=== PATIENT | male | born 1955 | race Caucasian/White ===

== ENCOUNTER → 2021-10-07 | Day surgery (SDC) | payer OTHER ==
[~2021-10-07] MED LIST: AMLODIPINE BESYL5 MG PO; ASPIRIN81 MG PO; FENTANYL CITRATE/PF 100MCG/2 ML INJ ONE; FUROSEMIDE40 MG PO; GLUCAGON FOR INJ 1 MG VIAL ONE; LEVOTHYROXINE100 MCG PO; LORATADINE10 MG PO; LOSARTAN POTASS25 MG PO; METFORMIN HCL850 MG PO; MIDAZOLAM HCL 5 MG/ML VIAL ONE; NOVOLIN 70100 UNIT/3 SC; PROPOFOL IV EMULSION 10 MG/ML 20 ML VIAL ONE; SIMVASTATIN20 MG PO
[2021-10-07 12:30] VITALS: BP 134/61
[2021-10-07 12:41] LABS: BASOPHILS % 0.3 % (0.0-1.0); EOSINOPHILS # (AUTO) 0.3 (0.0-0.4); EOSINOPHILS % 2.3 % (0.0-6.0); HEMATOCRIT 24.7 % (38.2-49.6); HEMOGLOBIN 7.9 g/dL (14.0-18.0); LYMPHOCYTES # (AUTO) 1.9 (1.0-3.2); LYMPHOCYTES % 17.1 % (18.0-39.1); MEAN CORPUSCULAR HEMOGLOBIN 27.1 pg (28-32); MEAN CORPUSCULAR VOLUME 84.6 fL (81-99); MONOCYTES # (AUTO) 0.6 (0.2-0.8); MONOCYTES % 5.5 % (4.4-11.3); NEUTROPHILS # (AUTO) 8.1 (2.1-6.9); NEUTROPHILS % 73.3 % (38.7-80.0); PLATELET COUNT 186 x10e3/uL (140-360); RED BLOOD COUNT 2.92 x10e6/uL (4.3-5.7); RED CELL DISTRIBUTION WIDTH 17.1 % (11.7-14.4)
[2021-10-07 12:58] LABS: % IRON SATURATION 17 % (15-50); IRON 40 ug/dL (65-175); TOTAL IRON BINDING CAPACITY 230 ug/dL (261-478); TRANSFERRIN 164 mg/dL (174-364)
== END | disposition home or self-care (01) ==
LOC: OR 15:24
PROVIDERS: ATTEND Internal Medicine Gastroenterology
DX: D64.89 Other specified anemias (principal); D12.2 Benign neoplasm of ascending colon; D12.3 Benign neoplasm of transverse colon; D12.4 Benign neoplasm of descending colon; D12.5 Benign neoplasm of sigmoid colon; K29.70 Gastritis, unspecified, without bleeding; K20.90 Esophagitis, unspecified without bleeding; K31.89 Other diseases of stomach and duodenum; K64.8 Other hemorrhoids; Z87.11 Personal history of peptic ulcer disease; Z71.3 Dietary counseling and surveillance; E11.9 Type 2 diabetes mellitus without complications; I10 Essential (primary) hypertension; E03.9 Hypothyroidism, unspecified; Z01.810 Encounter for preprocedural cardiovascular examination; Z01.812 Encounter for preprocedural laboratory examination; Z20.822 Contact with and (suspected) exposure to COVID-19; Z79.82 Long term (current) use of aspirin; Z79.4 Long term (current) use of insulin; Z79.899 Other long term (current) drug therapy; Z86.73 Personal history of transient ischemic attack (TIA), and cerebral infarction without residual deficits
CPT/HCPCS: 36415; 43239; 45380; 45384; 45385; 82607; 82746; 82948; 83540; 84466; 85025; 85045; 93005; J1610; J2250; J3010; U0002

== ENCOUNTER 2021-10-12 11:14 | Inpatient (IN) | payer OTHER ==
[~2021-10-12] VITALS: Ht 177.8 cm; Wt 77.1 kg
[~2021-10-12 11:14] MED LIST changes: -FENTANYL CITRATE/PF 100MCG/2 ML INJ ONE; -GLUCAGON FOR INJ 1 MG VIAL ONE; -MIDAZOLAM HCL 5 MG/ML VIAL ONE; -PROPOFOL IV EMULSION 10 MG/ML 20 ML VIAL ONE
[2021-10-12] MEDS ORDERED: LEVOFLOXACIN 500MG/D5W 100ML 100 ML IV ONE (12:15)
[2021-10-12] MEDS ORDERED: DEXTROSE 50% SYRINGE 50 ML IV PRN (12:30)
[2021-10-12] MEDS: LACTATED RINGER'S 1,000 ML IV SCH (12:30)
[2021-10-12] MEDS ORDERED: LACTATED RINGER'S 2,000 ML ONE (12:35)
[2021-10-12] MEDS ORDERED: METRONIDAZOLE 500MG/NS 100ML 100 ML IV ONE ×2 (12:35→13:30)
[2021-10-12] MEDS ORDERED: SODIUM CHLORIDE 0.9% 250ML 250 ML IV ONE (14:00)
[2021-10-12] MEDS ORDERED: CLONIDINE HCL 0.1 MG TAB PO PRN (14:00)
[2021-10-12] MEDS ORDERED: ZOLPIDEM TARTRATE 5 MG TAB PO PRN (14:00)
[2021-10-12] MEDS ORDERED: ACETAMINOPHEN 325 MG TAB PO PRN (14:00)
[2021-10-12] MEDS ORDERED: ONDANSETRON HCL INJ 2MG/ML 2ML 2 MG/ML VIAL IV PRN (14:00)
[2021-10-12] MEDS ORDERED: DIPHENHYDRAMINE HCL INJ 50 MG/ML VIAL IV PRN (14:00)
[2021-10-12 14:03] VITALS: BP 153/69
[2021-10-12 15:24] LABS: HEMOGLOBIN 7.4 g/dL (14.0-18.0)
[2021-10-12 16:00] VITALS: BP 153/69
[2021-10-12 16:26] VITALS: BP 119/97
[2021-10-12] MEDS: INSULIN REGULAR, HUMAN 100 UNIT/1 ML SQ SCH ×2 (16:30→20:43)
[2021-10-12 20:14] VITALS: BP 149/74
[2021-10-12 23:33] LABS: HEMATOCRIT 18.8 % (38.2-49.6); HEMOGLOBIN 6.3 g/dL (14.0-18.0)
[2021-10-13] VITALS (9 sets, daily range): BP systolic 132–149; BP diastolic 65–72
[2021-10-13] MEDS ORDERED: CYANOCOBALAMIN INJ 1,000 MCG/ML VIAL IM ONE (00:30)
[2021-10-13] MEDS ORDERED: SODIUM CHLORIDE 0.9% 250ML 250 ML ONE ×2 (00:51→03:40)
[2021-10-13 01:17] LABS: FERRITIN 70.15 ng/mL (21.81-274.66)
[2021-10-13 02:30] LABS: INR 1.16; PROTHROMBIN TIME 15.8 seconds (11.9-14.5)
[2021-10-13] MEDS: LACTATED RINGER'S 1,000 ML IV SCH (05:00)
[2021-10-13] MEDS: INSULIN REGULAR, HUMAN 100 UNIT/1 ML SQ SCH ×4 (08:30→20:30)
[2021-10-13] MEDS: LEVOTHYROXINE SODIUM 100 MCG TAB PO SCH (08:51)
[2021-10-13] MEDS: CYANOCOBALAMIN INJ 1,000 MCG/ML VIAL IM SCH (08:52)
[2021-10-13] MEDS: IRON SUCROSE 100 MG in SODIUM CHLORIDE 0.9% 100 ML 100 ML IV SCH (08:52)
[2021-10-13] MEDS: AMLODIPINE BESYLATE 5 MG TAB PO SCH (08:52)
[2021-10-13] MEDS ORDERED: FUROSEMIDE 20 MG TAB PO SCH (09:00)
[2021-10-13] MEDS ORDERED: LOSARTAN POTASSIUM 25 MG TAB PO SCH (09:00)
[2021-10-13 09:28] LABS: BASOPHILS % 0.3 % (0.0-1.0); EOSINOPHILS # (AUTO) 0.3 (0.0-0.4); EOSINOPHILS % 2.2 % (0.0-6.0); HEMATOCRIT 22.1 % (38.2-49.6); HEMOGLOBIN 7.4 g/dL (14.0-18.0); LYMPHOCYTES # (AUTO) 1.9 (1.0-3.2); LYMPHOCYTES % 16.4 % (18.0-39.1); MEAN CORPUSCULAR HGB CONC 33.5 g/dL (31-35); MEAN CORPUSCULAR VOLUME 83.7 fL (81-99); MONOCYTES # (AUTO) 0.6 (0.2-0.8); MONOCYTES % 5.2 % (4.4-11.3); NEUTROPHILS # (AUTO) 8.8 (2.1-6.9); NEUTROPHILS % 74.7 % (38.7-80.0); PLATELET COUNT 164 x10e3/uL (140-360); RED BLOOD COUNT 2.64 x10e6/uL (4.3-5.7)
[2021-10-13 09:37] LABS: CALCIUM IONIZED 1.2 mmol/L (1.09-1.30)
[2021-10-13 09:57] LABS: ALBUMIN 2.7 g/dL (3.5-5.0); ALBUMIN/GLOBULIN RATIO 1.4 (0.8-2.0); ALKALINE PHOSPHATASE 59 IU/L (40-150); ANION GAP 12.4 mmol/L (8-16); BLOOD UREA NITROGEN 46 mg/dL (7-26); BUN/CREATININE RATIO 23 (6-25); CARBON DIOXIDE 18 mmol/L (22-29); CHLORIDE 112 mmol/L (98-107); CREATININE, SERUM 1.97 mg/dL (0.72-1.25); EST GLOMERULAR FILTRATION RATE 34 ML/MIN (60-); GLUCOSE 158 mg/dL (74-118); MAGNESIUM 1.6 MG/DL (1.3-2.1); POTASSIUM 5.4 mmol/L (3.5-5.1); SODIUM 137 mmol/L (136-145)
[2021-10-13 10:03] LABS: ALANINE AMINOTRANSFERASE < 6 IU/L (0-55)
[2021-10-13 10:15] LABS: THYROID STIMULATING HORMONE 14.303 uIU/mL (0.350-4.940)
[2021-10-13] MEDS ORDERED: PHYTONADIONE 10 MG/ML AMP IV ONE (10:30)
[2021-10-13] MEDS ORDERED: SODIUM CHLORIDE 0.9% 500ML 500 ML ONE (10:56)
[2021-10-13] MEDS ORDERED: PHYTONADIONE 10MG/ML 20 MG in SODIUM CHLORIDE 0.9% 50ML 50 ML IV ONE (11:00)
[2021-10-13] MEDS ORDERED: SOD POLYSTYRENE SULFONATE SUSP 15 GM/60 ML BTL PO ONE (13:00)
[2021-10-13 14:28] LABS: HEMATOCRIT 22.9 % (38.2-49.6); HEMOGLOBIN 7.5 g/dL (14.0-18.0)
[2021-10-13] MEDS ORDERED: BISACODYL 5 MG TAB EC PO ONE ×2 (16:00→18:00)
[2021-10-13] MEDS ORDERED: MAGNESIUM SULFATE 2GM/50ML 50 ML IV ONE ×2 (16:30→18:30)
[2021-10-13] MEDS: SODIUM CHLORIDE 0.9% 1000ML 1,000 ML IV SCH ×2 (16:55→22:30)
[2021-10-13] MEDS ORDERED: MIDAZOLAM HCL 2 MG/2 ML VIAL ONE (17:24)
[2021-10-13] MEDS ORDERED: FENTANYL CITRATE/PF 100MCG/2 ML INJ ONE (17:24)
[2021-10-13 18:30] LABS: HEMOGLOBIN 6.5 g/dL (14.0-18.0)
[2021-10-13 18:31] LABS: HEMATOCRIT 19.2 % (38.2-49.6)
[2021-10-13] MEDS ORDERED: SODIUM CHLORIDE 0.9% 250ML 250 ML IV ONE (18:45)
[2021-10-13 18:58] LABS: CLARITY,URINE CLEAR (CLEAR); COLOR,URINE YELLOW (YELLOW); KETONES,URINE NEGATIVE (NEGATIVE); LEUKOCYTE ESTERASE ,URINE NEGATIVE (NEGATIVE); NITRITE,URINE NEGATIVE (NEGATIVE); PROTEIN,URINE DIPSTICK >=300 (NEGATIVE); URINE UROBILINOGEN 0.2 mg/dL (0.2 - 1)
[2021-10-13 19:01] LABS: RBC,URINE 0-5 /HPF (0-5); WBC,URINE (MAN) 0-5 /HPF (0-5)
[2021-10-13] MEDS: SIMVASTATIN 20 MG TAB PO SCH (20:30)
[2021-10-13] MEDS ORDERED: CITRATE OF MAGNESIA 300ML BOTTLE PO ONE (21:00)
[2021-10-14] VITALS (7 sets, daily range): BP systolic 140–158; BP diastolic 62–75
[2021-10-14] MEDS ORDERED: SODIUM CHLORIDE 0.9% 250ML 250 ML ONE ×3 (01:28→13:00)
[2021-10-14] MEDS ORDERED: BISACODYL 5 MG TAB EC PO ONE (03:45)
[2021-10-14] MEDS ORDERED: CITRATE OF MAGNESIA 300ML BOTTLE PO ONE (05:00)
[2021-10-14] MEDS: INSULIN REGULAR, HUMAN 100 UNIT/1 ML SQ SCH ×4 (07:30→21:05)
[2021-10-14 07:43] LABS: BASOPHILS % 0.2 % (0.0-1.0); EOSINOPHILS # (AUTO) 0.3 (0.0-0.4); EOSINOPHILS % 2.1 % (0.0-6.0); HEMATOCRIT 24.3 % (38.2-49.6); HEMOGLOBIN 8.2 g/dL (14.0-18.0); LYMPHOCYTES # (AUTO) 2.4 (1.0-3.2); LYMPHOCYTES % 17.1 % (18.0-39.1); MEAN CORPUSCULAR HEMOGLOBIN 28.1 pg (28-32); MEAN CORPUSCULAR HGB CONC 33.7 g/dL (31-35); MEAN CORPUSCULAR VOLUME 83.2 fL (81-99); MONOCYTES # (AUTO) 0.8 (0.2-0.8); MONOCYTES % 5.6 % (4.4-11.3); NEUTROPHILS # (AUTO) 10.2 (2.1-6.9); NEUTROPHILS % 73.8 % (38.7-80.0); PLATELET COUNT 185 x10e3/uL (140-360); RED BLOOD COUNT 2.92 x10e6/uL (4.3-5.7); RED CELL DISTRIBUTION WIDTH 15.7 % (11.7-14.4)
[2021-10-14 07:55] LABS: INR 1.07; PROTHROMBIN TIME 14.9 seconds (11.9-14.5)
[2021-10-14 08:03] LABS: ALBUMIN/GLOBULIN RATIO 1.4 (0.8-2.0); ANION GAP 14.3 mmol/L (8-16); CALCIUM 8.2 mg/dL (8.4-10.2); CREATININE, SERUM 1.94 mg/dL (0.72-1.25); POTASSIUM 4.3 mmol/L (3.5-5.1)
[2021-10-14] MEDS: LEVOTHYROXINE SODIUM 100 MCG TAB PO SCH (11:32)
[2021-10-14] MEDS: IRON SUCROSE 100 MG in SODIUM CHLORIDE 0.9% 100 ML 100 ML IV SCH (11:32)
[2021-10-14] MEDS: CYANOCOBALAMIN INJ 1,000 MCG/ML VIAL IM SCH (11:32)
[2021-10-14] MEDS: SODIUM CHLORIDE 0.9% 1000ML 1,000 ML IV SCH ×2 (11:32→16:39)
[2021-10-14] MEDS: AMLODIPINE BESYLATE 5 MG TAB PO SCH (11:32)
[2021-10-14] MEDS ORDERED: EPHEDRINE SULFATE INJ 50 MG/ML VIAL ONE (12:35)
[2021-10-14] MEDS ORDERED: PROPOFOL IV EMULSION 10 MG/ML 20 ML VIAL ONE (12:35)
[2021-10-14] MEDS ORDERED: HYOSCYAMINE SULFATE 0.5 MG/ML INJ ONE (12:35)
[2021-10-14] MEDS ORDERED: EPINEPHRINE HCL 1:1000 1ML 1 MG/ML AMP ONE (12:35)
[2021-10-14] MEDS ORDERED: LIDOCAINE HCL 2% LOCAL INJ 5 ML SDV VIAL INJ ONE (12:35)
[2021-10-14] MEDS ORDERED: GLUCAGON FOR INJ 1 MG VIAL ONE (12:35)
[2021-10-14 12:39] LABS: HEMATOCRIT 22.4 % (38.2-49.6); HEMOGLOBIN 7.6 g/dL (14.0-18.0)
[2021-10-14 19:03] LABS: HEMATOCRIT 18.3 % (38.2-49.6); HEMOGLOBIN 6.2 g/dL (14.0-18.0)
[2021-10-14 19:25] LABS: BASOPHILS % 0.2 % (0.0-1.0); EOSINOPHILS # (AUTO) 0.2 (0.0-0.4); EOSINOPHILS % 2.3 % (0.0-6.0); LYMPHOCYTES # (AUTO) 1.6 (1.0-3.2); LYMPHOCYTES % 18.6 % (18.0-39.1); MEAN CORPUSCULAR HEMOGLOBIN 28.2 pg (28-32); MEAN CORPUSCULAR HGB CONC 34.3 g/dL (31-35); MEAN CORPUSCULAR VOLUME 82.4 fL (81-99); MONOCYTES # (AUTO) 0.5 (0.2-0.8); MONOCYTES % 5.2 % (4.4-11.3); NEUTROPHILS # (AUTO) 6.3 (2.1-6.9); NEUTROPHILS % 72.9 % (38.7-80.0); PLATELET COUNT 141 x10e3/uL (140-360); RED BLOOD COUNT 2.16 x10e6/uL (4.3-5.7); RED CELL DISTRIBUTION WIDTH 15.9 % (11.7-14.4)
[2021-10-14 19:33] LABS: HEMOGLOBIN 6.1 g/dL (14.0-18.0)
[2021-10-14 19:34] LABS: HEMATOCRIT 17.8 % (38.2-49.6)
[2021-10-14] MEDS: SIMVASTATIN 20 MG TAB PO SCH (20:23)
[2021-10-14] MEDS ORDERED: SODIUM CHLORIDE 0.9% 250ML 250 ML IV ONE (21:00)
[2021-10-15] VITALS: BP 138/66
[2021-10-15] MEDS ORDERED: SODIUM CHLORIDE 0.9% 250ML 250 ML ONE (01:09)
[2021-10-15 04:00] VITALS: BP 143/65
[2021-10-15] MEDS: SODIUM CHLORIDE 0.9% 1000ML 1,000 ML IV SCH (04:15)
[2021-10-15] MEDS: INSULIN REGULAR, HUMAN 100 UNIT/1 ML SQ SCH ×2 (07:30→11:30)
[2021-10-15] MEDS: LEVOTHYROXINE SODIUM 100 MCG TAB PO SCH (07:30)
[2021-10-15 08:00] VITALS: BP 143/65
[2021-10-15 08:11] VITALS: BP 169/81
[2021-10-15] MEDS: AMLODIPINE BESYLATE 5 MG TAB PO SCH (09:00)
[2021-10-15] MEDS: CYANOCOBALAMIN INJ 1,000 MCG/ML VIAL IM SCH (09:00)
[2021-10-15] MEDS: IRON SUCROSE 100 MG in SODIUM CHLORIDE 0.9% 100 ML 100 ML IV SCH (09:00)
[2021-10-15 09:10] LABS: BASOPHILS % 0.2 % (0.0-1.0); EOSINOPHILS # (AUTO) 0.2 (0.0-0.4); EOSINOPHILS % 2.7 % (0.0-6.0); HEMATOCRIT 25.1 % (38.2-49.6); HEMOGLOBIN 8.6 g/dL (14.0-18.0); LYMPHOCYTES # (AUTO) 1.4 (1.0-3.2); LYMPHOCYTES % 15.6 % (18.0-39.1); MEAN CORPUSCULAR HEMOGLOBIN 28.6 pg (28-32); MEAN CORPUSCULAR HGB CONC 34.3 g/dL (31-35); MEAN CORPUSCULAR VOLUME 83.4 fL (81-99); MONOCYTES # (AUTO) 0.6 (0.2-0.8); MONOCYTES % 6.3 % (4.4-11.3); NEUTROPHILS # (AUTO) 6.6 (2.1-6.9); NEUTROPHILS % 74.1 % (38.7-80.0); PLATELET COUNT 138 x10e3/uL (140-360); RED BLOOD COUNT 3.01 x10e6/uL (4.3-5.7); RED CELL DISTRIBUTION WIDTH 15.3 % (11.7-14.4)
[2021-10-15 09:26] LABS: ANION GAP 12.1 mmol/L (8-16); CALCIUM 8.1 mg/dL (8.4-10.2); CREATININE, SERUM 1.75 mg/dL (0.72-1.25); POTASSIUM 4.1 mmol/L (3.5-5.1)
[2021-10-15 12:24] VITALS: BP 154/72
[2021-10-15 12:41] LABS: HEMATOCRIT 25.4 % (38.2-49.6); HEMOGLOBIN 8.7 g/dL (14.0-18.0)
== END 2021-10-15 16:36 | disposition home or self-care (01) | DRG 920 ==
LOC: FSED 11:45 → ERHOLD 12:14 → MED/SURG2 14:00 → OBSVTOIN 10-13 15:58
PROVIDERS: ADMIT Internal Medicine; ATTEND Internal Medicine
PROC: 30233K1 Transfusion of Nonautologous Frozen Plasma into Peripheral Vein, Percutaneous Approach (ICD-10-PCS; 2021-10-13)
PROC: 30233N1 Transfusion of Nonautologous Red Blood Cells into Peripheral Vein, Percutaneous Approach (ICD-10-PCS; 2021-10-13)
PROC: 30233R1 Transfusion of Nonautologous Platelets into Peripheral Vein, Percutaneous Approach (ICD-10-PCS; 2021-10-13)
PROC: 0DBK8ZX Excision of Ascending Colon, Via Natural or Artificial Opening Endoscopic, Diagnostic (ICD-10-PCS; 2021-10-14)
PROC: 0D5N8ZZ Destruction of Sigmoid Colon, Via Natural or Artificial Opening Endoscopic (ICD-10-PCS; 2021-10-14)
PROC: 0DBL8ZX Excision of Transverse Colon, Via Natural or Artificial Opening Endoscopic, Diagnostic (ICD-10-PCS; 2021-10-14)
PROC: 0W3P8ZZ Control Bleeding in Gastrointestinal Tract, Via Natural or Artificial Opening Endoscopic (ICD-10-PCS; principal; 2021-10-14 09:13)
DX: K91.840 Postprocedural hemorrhage of a digestive system organ or structure following a digestive system procedure (principal); K62.5 Hemorrhage of anus and rectum; D62 Acute posthemorrhagic anemia; N17.9 Acute kidney failure, unspecified; K63.5 Polyp of colon; K64.8 Other hemorrhoids; E87.5 Hyperkalemia; E03.9 Hypothyroidism, unspecified; G47.00 Insomnia, unspecified; I12.9 Hypertensive chronic kidney disease with stage 1 through stage 4 chronic kidney disease, or unspecified chronic kidney disease; N18.9 Chronic kidney disease, unspecified; I27.20 Pulmonary hypertension, unspecified; Z87.11 Personal history of peptic ulcer disease; E11.9 Type 2 diabetes mellitus without complications
CPT/HCPCS: 36415; 45381; 74176; 76770; 78315; 80048; 80053; 81001; 82232; 82553; 82607; 82728; 82746; 82948; 83540; 83735; 84152; 84165; 84443; 84466; 84484; 85014; 85018; 85025; 85045; 85610; 86850; 86900; 86920; 96360; 96372; 99284; A9503; A9521; A9570; G0378; J0171; J1610; J1756; J1817; J1980; J2001; J2250; J3010; J3420; J3430; J3475; J7030; J7040; J7050; J7121; P9016; P9017; P9034; U0002